=== PATIENT | male | born 1980 | race Caucasian/White ===

== ENCOUNTER 2021-02-21 16:30 | Emergency (ER) | payer SELFPAY ==
[2021-02-21 16:32] VITALS: BP 114/67; PULSE 51; RESP 13; TEMP 36.4; O2SAT 94; BMI 18.3
--- NOTE | 2021-02-21 16:33 | EDS_ITS ---
HPI History of Present Illness Chief Complaint: Laceration Informant: patient, family and EMS Occured/Mechanism Mechanism/Context: Yes injury, Yes blunt trauma and Yes work related Onset/Context/Timing Onset: Hours Context: Sudden Onset Timing: Continuous Quality of Pain: Dull and Aching Location: Dorsal mid left forearm Current Severity: Gone Maximum Severity: Moderate Worsened by: Injury Relieved by: 100 mics of fentanyl Associated Symptoms Associated Symptoms: Negative for Parasthesia, Weakness and Loss of Funtion Narrative Narrative: Patient is a 40-year-old [id number] male who presents with injury to the left forearm. He was using an impact wrench when this occurred. This occurred prior to arrival. He denies any paresthesia, anesthesia medics. He states the pain resolved after receiving 100 mcg of fentanyl. Tetanus is unknown. Tetanus Immunization: Unknown Prior similar symptoms: No Recent Illness/Hospitalization: No PFSH PFSH Home Medications cephalexin 500 mg PO Q8H #12 capsule 02/21/21 [Rx Last Taken Unknown] Allergy/AdvReac Type Severity Reaction Status Date / Time No Known Allergies Allergy Verified 02/21/21 16:32 Social History (Updated 02/21/21 @ 16:[address] Bradford Trujillo MD) household members: spouse and family Smoking Status: Never smoker substance use type: does not use ROS ROS ED Constitutional Constitutional ED: Denies chills, subjective or sweats Musculoskeletal Musculoskeletal: Denies back pain, myalgias or neck pain Integumentary Reports other Details: 2.5 inch laceration per EMS left forearm ; Denies abscess, Abrasions or rash Neurologic Neurologic: Denies paresthesias or weakness Hematologic/Lymphatic Hematologic/Lymphatic: Denies easy bleeding or easy bruising EXAM Physical Exam Const Positive well nourished and well developed General Appearance ED: well developed and other Patient appears pale. ; Negative for cyanotic or diaphoretic HEENT Reports moist mucous membranes normocephalic and atraumatic Eyes PERRL and EOMs intact bilaterally Eyes Narrative: Conjunctive is pink. Sclerae anicteric. Neck full ROM and supple Resp normal respiratory effort Cardio regular rate, regular rhythm, S1 normal heart sound, S2 normal heart sound and no murmurs Extremity full ROM; Negative for normal to inspection Extremity Narrative: Patient has a curvilinear laceration of the dorsal mid left forearm. Median, radial and ulnar function intact. There is no pain the patient of the radius or ulna. There is no pain the patient over the lateral or medial epicondyle. Is no pain the patient over the olecranon process. Is no pain the patient of the radial head. There is pain no patient over the mid forearm. Suspect this is soft tissue. Exploration of the wound indicates that patient has laceration to the belly of the extensor digiti minimized, extensor digitorum and the extensor carpi radialis brevis muscle belly. There is obvious difference with extension at the wrist compared to the uninjured side. He is able to extend his index, long, rin g and little finger independently. General Extremety ED: Yes other findings; Negative for edema General Extremity: other findings; Negative for edema Neuro oriented x3, CN's II-XII intact bilaterally, no focal motor deficits and no sensory deficits noted Sensorium / Orientation: alert Psych mental status grossly normal Skin Skin Narrative: 6 cm curvilinear laceration dorsal mid left forearm there appears to be exposure of muscle. Will obtain x-ray. Will explore after anesthetizing the area. Lesions: no lesions Rashes: no rashes Trauma: Negative for no lacerations or abrasions MDM MDM MDM Narrative Medical decision making narrative: Will obtain x-ray to rule out fracture and foreign body. The area be anesthetized and plan is to suture. I was informed by nurse that he refused tetanus vaccine. I informed that this is not the COVID-19 vaccine. He states he wants no vaccines. Therefore we will treat with metronidazole to prevent Clostridium tetany for 7 days. Radiography Diagnostic Testing: Three-view x-ray of the left forearm was interpreted by me at 1711 as negative. There is no fracture or foreign body noted. There is a soft tissue defect noted. Procedures Other Procedures Procedure(s): Patient's wound was anesthetized 1% lidocaine by local infiltration. The wound was irrigated with 200 cc of normal saline. After the wound was explored and there were multiple muscle bellies [facility] was contacted. Plan is to suture close volar splint with the wrist in extension follow-up with orthopedics Patient wound was closed in 2 layers. Using 4-0 Vicryl 3 subcutaneous stitches were placed. The skin was closed using 4-0 Ethilon. Total of [address] Wound was cleansed and dressed. Patient was placed in a volar Ortho-Glass splint with wrist in extension. Patient tolerated procedure well. He was discharged to home on cephalexin. Discharge Plan Triage Chief Complaint: Laceration ED Provider: Bradford Trujillo Dx/Rx/DC Orders Clinical Impression: Laceration of forearm, left, complicated Instructions: ED Laceration: All Closures Prescriptions: New cephalexin [cephalexin] 500 MG capsule 500 mg PO Q8H Qty: 12 RF: 0 Primary Care Provider: Imtiaz Landis Referrals: Imtiaz Landis DO [Primary Care Provider] - Behzad Loco DO [STAFF PHYSICIAN] - As soon as possible Activity Restrictions/Additional Instructions: #1. Must keep splint absolutely clean and dry #2. Take antibiotics until gone #3. Call doctor's office tomorrow to be seen on Wednesday or Wednesday #4. Do not remove splint. Let the orthopedic surgeon remove when he sees you. Disposition Disposition: Home, Self Care
[2021-02-21 16:36] VITALS: BP 114/67; PULSE 51; RESP 13; TEMP 36.4; O2SAT 94
--- NOTE | 2021-02-21 16:40 | ED.RN ---
pt refused tdap, i do not want a vaccine.
[2021-02-21] MEDS: Lidocaine 1% (20 ml mdv) 20 ML Vial INFILT (17:00)
--- NOTE | 2021-02-21 17:09 | RAD_ITS ---
STUDY: X-RAY - LEFT RADIUS AND ULNA REASON FOR EXAM: Male, 40 years old. Blunt trauma and laceration to posterior forearm due to equipment malfunction. TECHNIQUE: 2 view(s) of the forearm. COMPARISON: None. FINDINGS: Moderate focal soft tissue swelling is seen in the middle one third aspect of the radius with overlying bandage material. No visualized fractures. Normal visualized radius. Normal visualized ulna. RAD/Forearm 2 Views IMPRESSION: 1. Moderate focal soft tissue swelling is seen in the middle one third aspect of the radius with overlying bandage material. No visualized fractures. Electronically Signed: Chip Vieyra MD at 17:46 EDT , Service support ,
[2021-02-21 17:36] VITALS: BP 107/69; PULSE 54; RESP 14; TEMP 36.7
[2021-02-21] MEDS: Diphth,Pertuss(Acell),Tet Vac 0.5 ML Vial IM (17:51)
--- NOTE | 2021-02-21 17:52 | ED.RN ---
mother talked pt into getting the tdap
[2021-02-21] MEDS: Cefazolin 1 GM/50 ML BAG IV (18:36)
[2021-02-21 19:00] VITALS: BP 96/69; PULSE 65; RESP 12; O2SAT 98
[2021-02-21 20:41] VITALS: BP 105/73; PULSE 90; RESP 12; O2SAT 97
== END 2021-02-21 20:43 | disposition home or self-care (01) ==
PROVIDERS: Emergency Provider Emergency Medicine; PCP Family Medicine
DX: S51.812A Laceration without foreign body of left forearm, initial encounter (principal); S56.429A Laceration of extensor muscle, fascia and tendon of unspecified finger at forearm level, initial encounter; W27.8XXA Contact with other nonpowered hand tool, initial encounter; Y93.9 Activity, unspecified; Y92.9 Unspecified place or not applicable
CPT/HCPCS: 12002; 29125; 73090; 90471; 90715; 96365; 99285; A4216